=== PATIENT | male | born 2000 | race Caucasian/White ===

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

== ENCOUNTER 2022-04-22 13:04 | Outpatient (CLI) | payer BC | END 2022-04-22 13:05 | disposition home or self-care (01) | LOC: CSHWCC 13:04 | PROVIDERS: ATTEND Preventive Medicine Undersea and Hyperbaric Medicine | DX: T81.89XD Other complications of procedures, not elsewhere classified, subsequent encounter (principal) | CPT/HCPCS: 99212; G0463 ==

== ENCOUNTER 2022-06-12 10:47 | Outpatient (CLI) | payer BC | END 2022-06-12 10:48 | disposition home or self-care (01) | LOC: CSHWCC 10:47 | PROVIDERS: ATTEND Nurse Practitioner Family | DX: T81.89XD Other complications of procedures, not elsewhere classified, subsequent encounter (principal) | CPT/HCPCS: 99212; G0463 ==

== ENCOUNTER 2025-07-04 11:06 | Outpatient (CLI) | payer OTHER | END 2025-07-04 11:07 | disposition home or self-care (01) | LOC: CSHWCC 11:06 | PROVIDERS: ATTEND Nurse Practitioner Family | DX: L05.01 Pilonidal cyst with abscess (principal) | CPT/HCPCS: 99211; G0463 ==

== ENCOUNTER 2025-07-07 11:55 | Outpatient (CLI) | payer OTHER | END 2025-07-07 11:56 | disposition home or self-care (01) | LOC: CSHWCC 11:55 | PROVIDERS: ATTEND Nurse Practitioner Family | DX: L05.01 Pilonidal cyst with abscess (principal) | CPT/HCPCS: 97597 ==

== ENCOUNTER 2025-07-13 14:25 | Outpatient (CLI) | payer OTHER | END 2025-07-13 14:26 | disposition home or self-care (01) | LOC: CSHWCC 14:25 | PROVIDERS: ATTEND Nurse Practitioner Family | DX: L05.01 Pilonidal cyst with abscess (principal) | CPT/HCPCS: 99212; G0463 ==